=== PATIENT | male | born 1950 | race Caucasian/White ===

== ENCOUNTER 2018-08-19 07:49 | Day surgery (SDC) | payer OTHER ==
[2018-08-19] MEDS ORDERED: MIDAZOLAM 1 MG/ML 2 ML INJ ×2 (11:16)
[2018-08-19] MEDS ORDERED: FENTAnyl 50 MCG/ML VIAL (11:16)
== END 2018-08-19 15:47 | disposition home or self-care (01) ==
LOC: GIL 07:49
DX: Z12.11 Encounter for screening for malignant neoplasm of colon (principal); D12.5 Benign neoplasm of sigmoid colon; K64.8 Other hemorrhoids; E11.9 Type 2 diabetes mellitus without complications
CPT/HCPCS: 45380; 88305